=== PATIENT | female | born 1960 | race Caucasian/White ===

== ENCOUNTER 2024-12-05 15:55 | Emergency (ER) | payer MEDICAID ==
[~2024-12-05] VITALS: Ht 170.2 cm; Wt 81.6 kg
[2024-12-05 16:08] VITALS: TEMP 97.6
[2024-12-05] MEDS ORDERED: KETOROLAC TROMETHAMINE INJ 30 MG/ML VIAL ONE (17:20)
[2024-12-05] MEDS ORDERED: HYDROCODONE/APAP 5/325MG TABLET ONE (17:20)
[2024-12-05] MEDS: KETOROLAC TROMETHAMINE INJ 30 MG/ML VIAL IM ONE (17:29)
[2024-12-05] MEDS: HYDROCODONE/APAP 5/325MG TABLET PO ONE (17:29)
[2024-12-05] MEDS ORDERED: HYDR-4209 PO (18:37)
[2024-12-05 18:47] VITALS: BP 129/74; O2SAT 97
== END 2024-12-05 18:48 | disposition home or self-care (01) ==
LOC: ER 16:04
DX: S22.32XA Fracture of one rib, left side, initial encounter for closed fracture (principal); R07.89 Other chest pain; V43.12XA Car passenger injured in collision with other type car in nontraffic accident, initial encounter; W22.10XA Striking against or struck by unspecified automobile airbag, initial encounter; Y93.89 Activity, other specified; Y92.410 Unspecified street and highway as the place of occurrence of the external cause; Y99.8 Other external cause status
CPT/HCPCS: 99285; 71250; 71045; 96372; J1885